=== PATIENT | male | born 1940 | race Caucasian/White ===

== ENCOUNTER 2017-03-22 08:58 | Emergency (ER) | payer OTHER ==
[~2017-03-22] VITALS: Ht 165.1 cm; Wt 91.7 kg
[~2017-03-22 08:58] MED LIST: ASPEC81 PO; ATEN-173 PO; ATOR-24 PO; CHOL100010 PO; CLOP1TAB15 PO; ENOX40IN SQ; NTRGSL/4 UT; OMEG10007 PO; OXYC-57 PO; OXYSR10 PO
[2017-03-22 09:08] VITALS: TEMP 36.5; Ht 165.1 cm; Wt 91.7 kg
--- NOTE | 2017-03-22 09:28 | EMERGENCY ROOM VISIT NOTE ---
History Report prepared by Kim: Veronika Maddox Under the Supervision of: Dr. Felix Tang M.D. 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 The patient states that he has acid reflux and takes Tums and medication for his acid reflux. He reports that his chest pain today felt like acid reflux. He notes that he has cardiac history and has had stents placed and has had a heart attack before with no symptoms other than syncope. The patient states that today he was on the elliptical and started to feel weak and short of breath. He reports that he has also been having bilateral leg cramping at night for years. He complains of anxiety, weakness, and shortness of breath. He denies feeling any palpitations right now but reports that he has experienced them previously. The patient states that he takes aspirin and Plavix. 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 He denies feeling any palpitations. Review of Systems See HPI for pertinent positives & negatives. A total of 10 systems reviewed and were otherwise negative. Past Medical & Surgical Medical Problems: (1) Localized, primary osteoarthritis of the lower leg Old medical records were reviewed. Nurse's notes were reviewed and I agree with. Family History No pertinent family history stated. Social History Smoking Status: Former Smoker Marital Status: Housing Status: lives with significant other Current/Historical Medications Scheduled Aspirin (Aspirin Ec), 81 MG PO DAILY Atenolol (Tenormin), 12.5 MG PO DAILY Atorvastatin (Lipitor), 80 MG PO DAILY Cholecalciferol (Vitamin D), 1,000 UNITS PO DAILY Clopidogrel (Plavix), 75 MG PO DAILY Fish Oil (Flint-3), 1,200 MG PO DAILY Nitroglycerin (Nitrostat), 0.4 MG UT PRN Scheduled PRN Oxycodone HCl (Oxycontin), 10 MG PO Q12 PRN for Pain Allergies Coded Allergies: No Known Allergies (Verified Allergy, Mild, NONE, 04/18/09) Physical Exam Vital Signs Date Time Temp Pulse Resp B/P (MAP) Pulse Ox O2 Delivery O2 Flow Rate FiO2 03/22/17 11:38 61 18 108/57 98 03/22/17 11:38 61 18 108/57 98 Room Air 03/22/17 10:47 64 20 124/64 95 Room Air 03/22/17 09:23 65 18 142/75 98 Room Air 03/22/17 09:19 96 03/22/17 09:16 93 Room Air 03/22/17 09:08 36.5 94 18 146/80 96 Room Air Physical Exam General: Well developed well nourished in no acute distress, breathing comfortably on room air. Normal speech. Non ill appearing older male. HEENT: Normal cephalic atraumatic. Pupils are equal round and reactive to light. Extraocular movements are intact. Oropharynx is pink with moist mucous membranes. No swelling of the mouth lips or tongue. Neck: Supple with a midline trachea. No meningeal signs or stiffness, no JVD or bruits. No Stridor. Chest: Clear to auscultation bilaterally. No wheezes or rhonchi. No increased work of breathing. Heart: regular rate and rhythm. Abdomen: Soft nontender, nondistended without rebound guarding or rigidity. Extremities: No cyanosis clubbing or edema. No calf tenderness or assymetry Spine/Back. Non tender to palpation. No CVA tenderness Skin: Good turgor without rashes. Neurologic exam: Cranial nerves two through 12 are intact. Motor and sensation are intact and symmetrical throughout. Medical Decision & Procedures ER Provider Diagnostic Interpretation: X-ray results as stated below per interpretation by me and the radiologist: CHEST ONE VIEW PORTABLE FINDINGS: The heart is mildly enlarged. There is no failure. There is no focal pulmonary consolidation. There are no pleural effusions.[ IMPRESSION: No active disease in the chest. Electronically signed by: Brendan Ruth M.D. 03/22/2017 10:04 AM Dictated Date/Time: 03/22/2017 10:03 AM Laboratory Results 03/22/17 09:37 Red Blood Count 4.35, Mean Corpuscular Volume 102.1, Mean Corpuscular Hemoglobin 35.9, Mean Corpuscular Hemoglobin Concent 35.1, Mean Platelet Volume 10.6, Neutrophils (%) (Auto) 70.8, Lymphocytes (%) (Auto) 17.4, Monocytes (%) ( Auto) 9.7, Eosinophils (%) (Auto) 1.6, Basophils (%) (Auto) 0.1, Neutrophils # ( Auto) 4.89, Lymphocytes # (Auto) 1.20, Monocytes # (Auto) 0.67, Eosinophils # ( Auto) 0.11, Basophils # (Auto) 0.01 03/22/17 09:37 Test 03/22/17 09:37 03/22/17 09:46 White Blood Count 6.91 K/uL (4.8-10.8) Red Blood Count 4.35 M/uL (4.7-6.1) Hemoglobin 15.6 g/dL (14.0-18.0) Hematocrit 44.4 % (42-52) Mean Corpuscular Volume 102.1 fL (80-100) Mean Corpuscular Hemoglobin 35.9 pg (25-34) Mean Corpuscular Hemoglobin Concent 35.1 g/dl (32-36) Platelet Count 137 K/uL (130-400) Mean Platelet Volume 10.6 fL (7.4-10.4) Neutrophils (%) (Auto) 70.8 % Lymphocytes (%) (Auto) 17.4 % Monocytes (%) (Auto) 9.7 % Eosinophils (%) (Auto) 1.6 % Basophils (%) (Auto) 0.1 % Neutrophils # (Auto) 4.89 K/uL (1.4-6.5) Lymphocytes # (Auto) 1.20 K/uL (1.2-3.4) Monocytes # (Auto) 0.67 K/uL (0.11-0.59) Eosinophils # (Auto) 0.11 K/uL (0-0.5) Basophils # (Auto) 0.01 K/uL (0-0.2) RDW Standard Deviation 49.4 fL (36.4-46.3) RDW Coefficient of Variation 13.0 % (11.5-14.5) Immature Granulocyte % (Auto) 0.4 % Immature Granulocyte # (Auto) 0.03 K/uL (0.00-0.02) Prothrombin Time 11.7 SECONDS (9.0-12.0) Prothromb Time International Ratio 1.1 (0.9-1.1) Activated Partial Thromboplast Time 28.7 SECONDS (21.0-31.0) Partial Thromboplastin Ratio 1.1 Anion Gap 9.0 mmol/L (3-11) Est Creatinine Clear Calc Drug Dose 65.4 ml/min Estimated GFR () 84.4 Estimated GFR (Non- 72.8 BUN/Creatinine Ratio 15.4 (10-20) Calcium Level 8.0 mg/dl (8.5-10.1) Total Bilirubin 0.8 mg/dl (0.2-1) Direct Bilirubin 0.1 mg/dl (0-0.2) Aspartate Amino Transf (AST/SGOT) 23 U/L (15-37) Alanine Aminotransferase (ALT/SGPT) 36 U/L (12-78) Alkaline Phosphatase 113 U/L (45-117) Total Creatine Kinase 183 U/L (39-308) Creatine Kinase MB 2.4 ng/ml (0.5-3.6) Creatine Kinase MB Ratio 1.3 (0-3.0) Total Protein 6.8 gm/dl (6.4-8.2) Albumin 3.7 gm/dl (3.4-5.0) Lipase 158 U/L (73-393) Bedside Troponin I < 0.030 ng/ml (0-0.045) ZO-Yuy-[id number]-Type Natriuretic Peptide 296 pg/ml (0-1800) Laboratory studies as stated above per my review. ECG Indication: chest pain Rate (beats per minute): 94 Rhythm: normal sinus Findings: 1st degree AV block, PVC (Frequent), no acute ischemic change Comparison ECG Date: 02/02/2011 Change: no significant change ED Course 0917: Past medical records reviewed. The patient was evaluated in room C4, and a complete history and physical examination were performed. 1047: I reevaluated the patient. He is comfortable. 1048: I spoke to Nithya Carbajal PA-C of [facility]. She will evaluate the patient for further management. 1055: I spoke to Dr. Perry of Cardiology. 1121: He saw the patient and believes that he is set for discharge. He will follow up with Dr. Perry on Saturday. 1124: Upon reevaluation, the patient is doing well. I discussed the results and treatment plan with him. He verbalized agreement of the treatment plan. The patient was discharged home. Medical Decision Differential diagnosis includes acute coronary syndrome, anxiety, arrhythmia, electrolyte or metabolic abnormality. Blood pressure Screening: Patient was found to have normal blood pressure on screening and does not require follow-up. Medication Reconciliation: I attest that I have personally reviewed the patient' s current medication list. This patient comes in as described above. He was placed room C4. Here for treatment and evaluation intermittent discomfort in his epigastric area which he feels could be anxiety related. He does have a cardiac history however he looks well on exam is midline for about a month. It is not exertional. He has no significant associated symptoms. IV access established and EKG was obtained and multiple blood testing was obtained. His EKG does not suggest acute coronary syndrome or arrhythmia. He has no acute electrolyte or metabolic abnormalities. His troponin was not elevated. I did talk to the hospitalist about admission they recommended talked to Dr. Perry. Dr. 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 The patient and his are both very happy with the plan and he will be discharged to home. Consults Time Called: 1045 Consulting Physician: Nithya Carbajal PA-C [facility] Returned Call: 1045 I spoke to Nithya Carbajal PA-C about the patient's case. Additional Consults: Time Called: 1055 Consulted Physician: Dr. Perry - Cardiology Returned Call: 1121 Additional Comments: 1055: I spoke to Dr. Perry of Cardiology. 1121: He saw the patient and believes that he is set for discharge. He will follow up with Dr. Perry on Saturday. Impression Primary Impression: Precordial chest pain Scribe Attestation The scribe's documentation has been prepared under my direction and personally reviewed by me in its entirety. I confirm that the note above accurately reflects all work, treatment, procedures, and medical decision making performed by me. Departure Information Dispostion Home / Self-Care Referrals Yoan Mehta MD (PCP) Forms HOME CARE DOCUMENTATION FORM, IMPORTANT VISIT INFORMATION Patient Instructions My [facility] Additional Instructions Rest. Return if: Increasing or further pain, shortness of breath, fever chills, any new problems or concerns Follow-up with Dr. Perry for stress test he will call you with the appointment Return to ER over the weekend if symptoms worsen or change in anyway
[2017-03-22 09:51] LABS: BASO % 0.1 %; BASO ABS # 0.01 K/uL (0-0.2); COMPLETE YES; EOS % 1.6 %; HEMATOCRIT 44.4 % (42-52); IG% 0.4 %; LYMPH % 17.4 %; MEAN CELL VOLUME 102.1 fL (80-100); MEAN CORPUSCULAR HEMOGLOBIN 35.9 pg (25-34); MEAN CORPUSCULAR HGB CONC 35.1 g/dl (32-36); MEAN PLATELET VOLUME 10.6 fL (7.4-10.4); MONO % 9.7 %; NEUT % 70.8 %; PLATELET COUNT 137 K/uL (130-400); RED BLOOD COUNT 4.35 M/uL (4.7-6.1); WHITE BLOOD COUNT 6.91 K/uL (4.8-10.8)
[2017-03-22 10:00] LABS: INR 1.1 (0.9-1.1); PARTIAL THROMBOPLASTIN RATIO 1.1; PROTHROMBIN TIME (PATIENT) 11.7 SECONDS (9.0-12.0)
[2017-03-22] MEDS ORDERED: CHOL100010 PO (10:01)
[2017-03-22] MEDS ORDERED: ATOR-26 PO (10:01)
[2017-03-22] MEDS ORDERED: OXYSR/10 PO (10:01)
[2017-03-22] MEDS ORDERED: ASPI81TA28 PO (10:01)
--- NOTE | 2017-03-22 10:05 | DIAGNOSTIC IMAGING REPORT ---
CHEST ONE VIEW PORTABLE CLINICAL HISTORY: Atypical chest pain and shortness of breath COMPARISON STUDY: 04/18/2009 FINDINGS: The heart is mildly enlarged. There is no failure. There is no focal pulmonary consolidation. There are no pleural effusions.[ IMPRESSION: No active disease in the chest. Electronically signed by: Brendan Ruth M.D. 03/22/2017 10:04 AM Dictated Date/Time: 03/22/2017 10:03 AM
[2017-03-22 10:06] LABS: POINT OF CARE PRO-BNP 296 pg/ml (0-1800); POINT OF CARE TROPONIN I < 0.030 ng/ml (0-0.045)
[2017-03-22 10:12] LABS: BUN/CREATININE RATIO 15.4 (10-20); POTASSIUM 3.9 mmol/L (3.5-5.1)
[2017-03-22 10:17] LABS: CKMB/CK RATIO 1.3 (0-3.0)
[2017-03-22 11:38] VITALS: BP 108/57; PULSE 61; O2SAT 98
--- NOTE | 2017-03-22 13:22 | CARDIOLOGY CONSULTATION ---
DATE OF CONSULTATION: 03/22/2017 REFERRING: Dr. Felix Tang. PRIMARY CARE PHYSICIAN: Dr. Mehta. INDICATIONS: Chest pressure and epigastric pain. HISTORY OF PRESENT ILLNESS: The patient is a 76-year-old male whose history is notable for atherosclerotic coronary disease with acute ST elevation myocardial infarction in April 2006 complicated by cardiogenic shock, treated with PTCA and stenting of an occluded left circumflex with residual 60% mid left anterior descending stenosis at that time. Underlying medical problems include dyslipidemia, past history of pancreatitis. 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 He is concerned regarding symptoms as per previous directions and presented to the Emergency Room for further evaluation. He is currently pain free without complaint. Notes no dizziness, lightheadedness, syncope or near syncope. Notes no tachypalpitations. Notes no melena, hematochezia, dysuria or hematuria. Notes no rash or arthritic complaint. Weight and appetite have been stable. He has had no changes in medications. Overall, has been generally tolerating exercise activities at least 3-4 days per week and golfing as well with the patient exercising at the high level workload. He notes no rest discomfort. Notes no change in sleep habits. Notes no bowel or bladder difficulties. ALLERGIES: None. REVIEW OF SYSTEMS: As per HPI. MEDICATIONS: Prior to hospitalization were atenolol 12.5 mg per day, clopidogrel 75 mg p.o. daily, omeprazole 20 mg p.o. daily, atorvastatin 80 mg p.o. daily, vitamin B12 1000 mcg p.o. every day, lorazepam 1 mg q. 8 hours p.r.n., omega 3 fish oils and aspirin 81 mg per day. PAST SURGICAL HISTORY: Notable for prior total knee arthroplasty, bilateral cataract extraction, past laparoscopic cholecystectomy. FAMILY HISTORY: Noncontributory. SOCIAL HISTORY: The patient is a nonsmoker, uses [id number] alcoholic beverages. He is physically active. 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 PHYSICAL EXAMINATION: VITAL SIGNS: Heart rate is 60. Blood pressure is 108/57. HEENT: Normocephalic, atraumatic. Nares without discharge. Throat was clear. NECK: Supple without thyromegaly, lymphadenopathy, JVD or bruit. LUNGS: Clear to auscultation. CARDIOVASCULAR: Regular with normal S1, S2. There is no S3 gallop. ABDOMEN: Soft, nontender. There is no palpable hepatosplenomegaly. There is no hepatojugular reflux. EXTREMITIES: Without cyanosis or clubbing. There is no peripheral edema. Femoral distal pulses are 2+/4. There are no femoral bruits. LABORATORY DATA: Point of care troponin was less than 0.03. CK and MB fractions were normal. Lipase is 158. Electrolytes were normal, although potassium 3.9. White cell count 6.9, hemoglobin is 15.6, platelet count is 137. IMAGING DATA: Chest x-ray revealed no infiltrate or edema. EKG demonstrates sinus rhythm with first degree AV block, occasional ventricular ectopic beats, and old inferior infarct. IMPRESSION: A 76-year-old male with underlying history of prior cardiac disease as outlined with prior extensive inferoposterior infarct with residual class 1-2 functional capacity at usual high level workload and today noted some decrease in exercise capacity and presented to the Emergency Room with no acute findings of ischemia. Heart rate is slightly higher than average with occasional ventricular ectopy on initial exam. Enzymes do not reflect myocardial injury. PLAN AND RECOMMENDATIONS: Discussed findings in detail with the patient. We will recommend repeat stress testing, last study is stress nuclear imaging, was performed in February in 2014 with extensive inferior infarct present. Echocardiogram and stress nuclear imaging will be ordered for later this week. The patient to be discharged to home on same medications, though to avoid all strenuous activities until full evaluation performed. If the patient has recurrent symptoms, he is to present promptly back to the Emergency Room. He is agreeable to plan, only disappointment delaying golf outing on Saturday. JUNIOR
== END 2017-03-22 11:40 | disposition home or self-care (01) ==
LOC: C.EDB 08:59 → C.EDC 11:40
DX: R07.2 Precordial pain (principal); I25.2 Old myocardial infarction; Z95.5 Presence of coronary angioplasty implant and graft; Z79.82 Long term (current) use of aspirin; Z79.01 Long term (current) use of anticoagulants; F41.9 Anxiety disorder, unspecified; Z87.891 Personal history of nicotine dependence; Z79.899 Other long term (current) drug therapy; E78.5 Hyperlipidemia, unspecified; Z96.659 Presence of unspecified artificial knee joint; Z98.41 Cataract extraction status, right eye; Z98.42 Cataract extraction status, left eye; Z90.49 Acquired absence of other specified parts of digestive tract